=== PATIENT | female | born 1995 | race Caucasian/White ===

== ENCOUNTER 2018-02-22 16:13 | Emergency (ER) | payer OTHER, SELFPAY ==
[2018-02-22 16:15] VITALS: BP 134/74; PULSE 96; RESP 16; TEMP 36.6; O2SAT 96; BMI 26.2
--- NOTE | 2018-02-22 16:28 | US_ITS ---
STUDY: FIRST TRIMESTER OBSTETRICAL ULTRASOUND REASON FOR EXAM: Female, 22 years old. Bleeding. LMP: November 20, 2017 TECHNIQUE: Transvaginal. PRIOR ULTRASOUND: None. FINDINGS: There is visualization of a single gestational sac in a normal intrauterine position. The mean sac diameter (MSD) measures 2.1 cm, indicating an estimated gestational age (EGA) of 7 weeks, 1 days. The gestational sac shape is irregular. There is no demonstrated yolk sac. The placenta is non-visualized. There is no demonstrated embryo ( pole). The estimated gestation age (EGA) by LMP is 13 weeks, 3 days. The estimated date of delivery (REGGIE) by LMP is August 27, 2018. The estimated gestation age (EGA) by US is 7 weeks, 1 days. The estimated date of delivery (REGGIE) by US is October 10, 2018. The uterus measures 8.3 x 5.7 x 4.5 cm. There is no demonstrated uterine fibroid. The cervix is closed. The right ovary measures 2.9 x 1.8 x 1.6 cm. There is no right ovarian cyst. There is no visualized right adnexal mass or complex lesion. The left ovary measures 3.7 x 2.4 x 1.7 cm. There is 2.2 cm cyst. There is no visualized left adnexal mass or complex lesion. There is no fluid in the cul de sac. US/Transvaginal w/Preg US IMPRESSION: Intrauterine gestational sac at 7 weeks 1 day with irregular appearance. There is no pole nor cardiac activity. Electronically Signed: Vitaly Llanes MD at 17:46 EDT , Service support ,
--- NOTE | 2018-02-22 16:32 | ED.VISSUMM ---
- ER Visit Summary Date of Service: 02/22/18 Chief Complaint: Possible miscarriage History of Present Illness: The patient is a 22 F . Last menstrual period was about 2 months ago. Patient had an ultrasound about 10 days ago that showed a yolk sac and gestational sac, but she never showed a pole. Her quant has been going down and her OB is concerned for miscarriage. Today she started passing blood and clots. She is having cramping. Physical Examination: Vital signs are unremarkable. Afebrile. Nontoxic. Skin appears normal. Abdomen soft and nontender. Test Results: CBC, blood type, quant pending. Ultrasound pending. Blood counts normal. Blood type B+. Quant 6300. The patient thinks it was much higher on the last check. Ultrasound showed a gestational sac at 7 weeks and 1 day. No pole or cardiac activity. Pelvic exam showed old brown blood. Cervix closed. No masses or other tissue. No significant tenderness. Emergency Department Course and Treatment: Patient likely has an inevitable miscarriage. Workup as above. Patient will follow up with OB tomorrow. Return if unable to follow-up for any new or worsening symptoms develop. Treatment Plan: As above Disposition: Discharged Impression: 1. Inevitable This note was generated with [employer] dictation software. It may contain incorrect words, spelling, and punctuation that were not noted in review of the chart prior to signing ED Disposition - Plan for ED Patient: Chief Complaint: Vag Bld, Preg Referrals: [facility] Doctor,Out of [Primary Care Provider] -
[2018-02-22] MEDS: Acetaminophen 500 MG Tablet 1000 MG PO (16:50)
[2018-02-22 16:58] LABS: Absolute Lymphocyte Count 2.81 X10^3/ul (0.83-4.51); Absolute Neutrophil Count 5.9 X10^3/uL (2.0-7.7); Basophil# 0.02 X10^3/uL; Basophil% 0.2 % (0-1); Eosinophil# 0.59 X10^3/uL; Hematocrit 36.8 % (37-47); Hemoglobin 12.3 g/dl (12.0-15.0); Lymphocyte # 2.81 X10^3/ul (4.0); Lymphocyte % 28.4 % (19-41); Mean Corp Hgb Conc 33.4 g/gl (32-36); Mean Corpuscular Hgb 31.6 pg (27.0-32.0); Mean Corpuscular Volume 94.6 fL (81-99); Monocyte# 0.57 X10^3/uL; Monocyte% 5.8 % (0-10); Neutrophil # 5.88 X10^3/uL (2.7-7.7); Neutrophil % 59.5 % (47-70); Platelet Count 257 K/mm3 (150-450); RBC Distribution Width CV 13.5 % (11.6-14.6); RBC Distribution Width SD 46.6 fl (35.1-43.9); Red Blood Count 3.89 M/mm3 (4.2-5.4); White Blood Count 9.9 K/mm3 (4.4-11.0)
[2018-02-22 17:00] LABS: POSITIVE COUNT NO; POSITIVE DIFFERENTIAL NO; POSITIVE MORPHOLOGY NO
[2018-02-22 17:36] LABS: hCG Titer Quant., Serum 6310 mIU/mL (<9 non-preg)
--- NOTE | 2018-02-22 19:16 | ED.DEP ---
ED Disposition - Plan for ED Patient: Chief Complaint: Vag Bld, Preg Instructions: ED Miscarriage Incom Referrals: [facility] Doctor,Out of [Primary Care Provider] - Additional Instructions: Follow up with your OB tomorrow. Return if worse or if unable to follow up.
[2018-02-22 19:26] VITALS: BP 112/65; PULSE 100; PULSE 93; O2SAT 96; O2SAT 98
== END 2018-02-22 19:34 | disposition home or self-care (01) ==
PROVIDERS: Emergency Provider Emergency Medicine
DX: O20.0 Threatened abortion (principal); O99.331 Smoking (tobacco) complicating pregnancy, first trimester; F17.290 Nicotine dependence, other tobacco product, uncomplicated; Z3A.01 Less than 8 weeks gestation of pregnancy; Z79.899 Other long term (current) drug therapy
CPT/HCPCS: 76817; 84702; 85025; 86900; 86901; 99284; A4216

== ENCOUNTER 2018-02-26 05:12 | Emergency (ER) | payer OTHER, SELFPAY ==
[2018-02-26 05:13] VITALS: BP 120/76; PULSE 72; RESP 22; TEMP 36.4; O2SAT 99; BMI 27.8
--- NOTE | 2018-02-26 05:31 | ED.VISSUMM ---
- ER Visit Summary Date of Service: 02/26/18 Chief Complaint: Miscarriage History of Present Illness: The patient is a 22 F 7 week and 5 day by ultrasound presents with increasing pelvic pain and vaginal bleeding with clots since midnight. Was seen 4 days ago in the ED with ultrasound 7 weeks and 1 day, there is no heart tones, concerns for an inevitable miscarriage. Her LOAN ORIGINATOR is in [place]. She did call the office the following day, was able to get in. She was in the process having her records transferred to OB in the region, she cannot recall the name at this time. She states over the last 3 days only mild spotting and improving however at midnight pain increase along with bleeding with clots. Denies any trauma. Last meal was at 6 PM, drink clear fluids at 2 AM. Records reviewed, noted ultrasounds. HCG was 6310. Physical Examination: General: Alert and oriented ?3, uncomfortable, tearful HEENT: Normocephalic, atraumatic. Moist mucosa membranes Neck: supple, nontender. Cardiovascular: Regular rate and rhythm, no murmurs Respiratory: Normal breath sounds, symmetric, no distress Abdomen: Soft, suprapubic tenderness without guarding or rebound : Normal external exam. Speculum examination noted blood pooling in the vault with small clots. Blood was removed with cotton swabs. There is noted tissue at the cervical os. Extremities: Nontender, no edema, pulses intact ?4 Neuro: no focal neurological deficits. Test Results: HCG 2500. Hemoglobin 12.1. Rh+. Emergency Department Course and Treatment: Due to patient discomfort, IVs placed. Given dose of morphine and Zofran. IV fluids started. Hemoglobin obtained stable. Quant is trending down from 4 days ago. Rh+. Reevaluation she is much more comfortable. Discussed currently active miscarriage. Parents in the room. Patient states she would like to naturally miscarriage at home. Short prescription for Percocet to use. She will use Motrin also. States there is an OB doctor name at home in the area however she is also given follow-up with current on-call OB. Discussed monitoring bleeding increasing with more than 2 pads every hour for hours or pain out of control to return for reevaluation. Patient understands and agrees with plan. Treatment Plan: [] Disposition: Discharge Impression: Active miscarriage This note was generated with Dragon dictation software. It may contain incorrect words, spelling, and punctuation that were not noted in review of the chart prior to signing ED Disposition - Plan for ED Patient: Disposition: Home or Assisted Living Chief Complaint: Vag Bld, Preg Diagnosis: Incomplete miscarriage Instructions: ED Miscarriage Incom Prescriptions: Oxycodone HCl/Acetaminophen [Percocet 5/325] 1 tablet PO Q6H PRN PRN 3 Days #12 tablet PRN Reason: Pain Referrals: [facility] Doctor,Out of [Primary Care Provider] - Babak Ibrahim [STAFF PHYSICIAN] - 3-5 Days
[2018-02-26] MEDS: Morphine 4 MG/ML Syringe IV (05:38)
[2018-02-26] MEDS: 0.9% Normal Saline 1,000 ML 150 ML IV (05:38)
[2018-02-26] MEDS: Ondansetron 4 MG/2 ML Vial IV (05:38)
[2018-02-26 05:49] LABS: Absolute Lymphocyte Count 1.93 X10^3/ul (0.83-4.51); Absolute Neutrophil Count 8.3 X10^3/uL (2.0-7.7); Basophil# 0.02 X10^3/uL; Basophil% 0.2 % (0-1); Eosinophil# 0.29 X10^3/uL; Eosinophils% 2.6 % (0-5); Hematocrit 36.4 % (37-47); Hemoglobin 12.1 g/dl (12.0-15.0); Lymphocyte # 1.93 X10^3/ul (4.0); Lymphocyte % 17.3 % (19-41); Mean Corp Hgb Conc 33.2 g/gl (32-36); Mean Corpuscular Hgb 31.5 pg (27.0-32.0); Mean Corpuscular Volume 94.8 fL (81-99); Mean Platelet Vol. 10.2 fl (6.2-12.0); Monocyte# 0.64 X10^3/uL; Monocyte% 5.7 % (0-10); Neutrophil # 8.27 X10^3/uL (2.7-7.7); Platelet Count 248 K/mm3 (150-450); RBC Distribution Width CV 13.2 % (11.6-14.6); RBC Distribution Width SD 44.4 fl (35.1-43.9); Red Blood Count 3.84 M/mm3 (4.2-5.4); White Blood Count 11.2 K/mm3 (4.4-11.0)
[2018-02-26 06:03] LABS: POSITIVE COUNT NO; POSITIVE DIFFERENTIAL NO; POSITIVE MORPHOLOGY NO
[2018-02-26 06:28] LABS: hCG Titer Quant., Serum 2574 mIU/mL (<9 non-preg)
[2018-02-26 07:23] VITALS: PULSE 63; RESP 18; O2SAT 98
== END 2018-02-26 07:24 | disposition home or self-care (01) ==
PROVIDERS: Emergency Provider Emergency Medicine
DX: O03.4 Incomplete spontaneous abortion without complication (principal); Z79.899 Other long term (current) drug therapy
CPT/HCPCS: 84702; 85025; 86850; 86900; 96361; 96374; 96375; 99285; J7030; J2405

== ENCOUNTER 2018-09-07 12:19 | Emergency (ER) | payer OTHER, SELFPAY ==
[2018-09-07 12:20] VITALS: BP 129/73; PULSE 111; RESP 18; TEMP 36.6; O2SAT 98; BMI 27.3
--- NOTE | 2018-09-07 12:54 | RAD_ITS ---
STUDY: X-RAY - RIGHT HAND REASON FOR EXAM: Female, 23 years old. Increasing pain at the second metacarpal region. History of arthrogryposis TECHNIQUE: 3 view(s) of the hand. COMPARISON: None. FINDINGS: Normal radiocarpal articulation. Normal distal radioulnar joint. Normal visualized carpal bones. Normal carpal articulations Normal carpometacarpal articulation of the thumb. Normal second through fifth carpometacarpal joints. Normal metacarpi. There is arthrodesis of the first metacarpophalangeal joint. Normal interphalangeal joint of the thumb. Normal proximal and distal phalanges of the thumb. Fusion at the second metacarpophalangeal joint. Flexion deformity at the third fourth and fifth metacarpophalangeal joints. Normal proximal and distal interphalangeal joints of the second through fifth fingers. Normal phalanges of the second through fifth fingers. The soft tissue structures are unremarkable. RAD/Hand Min 3 Views IMPRESSION: Fusion at the first and second metacarpophalangeal joints. Flexion deformities of the third fourth and fifth metacarpophalangeal joints. Electronically Signed: Jaguar Galdamez MD at 13:21 EDT Tel [phone], Service support ,
--- NOTE | 2018-09-07 14:08 | ED.VISSUMM ---
- ER Visit Summary Date of Service: 09/07/18 Chief Complaint: Right hand pain History of Present Illness: The patient is a 23 F presenting for evaluation secondary to right hand pain. Patient has a history of Arthrogryposis. She has had multiple surgeries to her right hand including fusions. Last one was done a couple years ago down in [place]. Patient reports over the course last 2 weeks she has had gradually increasing pain and swelling associated with her underlying medical condition. She denies any injuries or fever. Patient states that anti-inflammatories did somewhat help with this, as well as bracing. Physical Examination: Upper extremity exam shows contractures of the fingers bilaterally. Right hand exam shows multiple scars over the metacarpals. Limited range of motion of the fingers. No warmth or erythema noted. No evidence of lymphangitic streaking. Limited range of motion at baseline. 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 Reviewed patient's prescription reporting record, she has not had any sort of pain medications recently. Patient will be sent home with a course of [place]. I gave her multiple referrals for hand surgeons in the area with which she can follow-up. She was appreciated this and the patient was discharged. Disposition: Discharge Impression: 1. Right-sided arthrogryposis This note was generated with [employer] dictation software. It may contain incorrect words, spelling, and punctuation that were not noted in review of the chart prior to signing ED Disposition - Plan for ED Patient: Disposition: Home or Assisted Living Chief Complaint: Upper Extremity Injury Diagnosis: Arthrogryposis Instructions: ED Joint Pain Prescriptions: Hydrocodone Bitart/Apap 5-325 [[place] 5MG-325MG] 1 tab PO Q6H PRN PRN 3 Days #12 tab PRN Reason: Pain Referrals: Lamont Navarrete III, MD [STAFF PHYSICIAN] - (For primary care) Soco Rachel DO [STAFF PHYSICIAN] - (Rob hand) Additional Instructions: Dr. Chente Ragsdale [facility] [address] [facility] [address], [place] [address] Dr. Miguel A Jalloh [facility] [address], [place] [address]
--- NOTE | 2018-09-07 14:12 | ED.DCSUM_ITS ---
- ER Visit Summary Date of Service: 09/07/18 Chief Complaint: Right hand pain History of Present Illness: The patient is a 23 F presenting for evaluation secondary to right hand pain. Patient has a history of Arthrogryposis. She has had multiple surgeries to her right hand including fusions. Last one was done a couple years ago down in [place]. Patient reports over the course last 2 weeks she has had gradually increasing pain and swelling associated with her underlying medical condition. She denies any injuries or fever. Patient states that anti-inflammatories did somewhat help with this, as well as bracing. Physical Examination: Upper extremity exam shows contractures of the fingers bilaterally. Right hand exam shows multiple scars over the metacarpals. Limited range of motion of the fingers. No warmth or erythema noted. No evidence of lymphangitic streaking. Limited range of motion at baseline. 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 Reviewed patient's prescription reporting record, she has not had any sort of pain medications recently. Patient will be sent home with a course of [place]. I gave her multiple referrals for hand surgeons in the area with which she can follow-up. She was appreciated this and the patient was discharged. Disposition: Discharge Impression: 1. Right-sided arthrogryposis This note was generated with [email or web address] dictation software. It may contain incorrect words, spelling, and punctuation that were not noted in review of the chart prior to signing ED Disposition - Plan for ED Patient: Disposition: Home or Assisted Living Chief Complaint: Upper Extremity Injury Diagnosis: Arthrogryposis Instructions: ED Joint Pain Prescriptions: Hydrocodone Bitart/Apap 5-325 [[place] 5MG-325MG] 1 tab PO Q6H PRN PRN 3 Days #12 tab PRN Reason: Pain Referrals: Lamont Navarrete III, MD [STAFF PHYSICIAN] - (For primary care) Soco Rachel DO [STAFF PHYSICIAN] - (Rob hand) Additional Instructions: Dr. Chente Ragsdale [facility] [address], [address] [facility] [address], [place] [address] Dr. Miguel A Jalloh [facility] [address], [place] [address]
[2018-09-07 14:23] VITALS: PULSE 89; RESP 14; O2SAT 98
== END 2018-09-07 14:24 | disposition home or self-care (01) ==
PROVIDERS: Emergency Provider Emergency Medicine
DX: Q68.8 Other specified congenital musculoskeletal deformities (principal); G89.29 Other chronic pain; Z79.899 Other long term (current) drug therapy
CPT/HCPCS: 73130; 99282

== ENCOUNTER 2019-05-13 10:12 | Emergency (ER) | payer BC, SELFPAY ==
[2019-04-15 12:25] VITALS: BMI 27.3
[2019-05-13 10:13] VITALS: BP 155/94; PULSE 105; RESP 18; TEMP 36.6; O2SAT 100; BMI 27.6
--- NOTE | 2019-05-13 10:34 | ED.DCSUM_ITS ---
- ER Visit Summary Date of Service: 05/13/19 Chief Complaint: Left hand pain History of Present Illness: The patient is a 23 F who presents with left hand pain that has been getting worse over the past week. Patient has a history of arthrogryposis and states it is flaring up. Patient states her pain is worse with any movement. Patient states she has been taking ibuprofen with no relief. Patient states she normally wears splints at night which help with the pain but this has not been helping over the past few days. Patient describes the pain as sharp and aching. Patient states the pain is over the left index finger on the dorsal aspect. Patient states she is scheduling an appointment with her orthopedic surgeon for further evaluation. Physical Examination: Vital signs are stable. Patient is afebrile. Patient is in no acute distress. Musculoskeletal exam reveals tenderness over the dorsal aspect of the left index finger and second metacarpal. There is no edema or ecchymosis. There is no bony crepitance or step-off. Range of motion was limited in all motions of the left index finger secondary to pain. Sensation was intact to light touch in all digits. Capillary refill was less than 2 seconds in all digits. Radial pulses are equal bilaterally. Emergency Department Course and Treatment: Patient was given prescriptions for prednisone and a short course of [place]. Patient was instructed to follow-up with her primary care physician and orthopedic surgeon as scheduled. Patient understood and was agreeable with the plan. All questions were answered. Disposition: Discharge home Impression: Arthritis flareup left hand This note was generated with [employer] dictation software. It may contain incorrect words, spelling, and punctuation that were not noted in review of the chart prior to signing ED Disposition - Plan for ED Patient: Disposition: Home or Assisted Living Diagnosis: Arthritis pain, hand Instructions: METHYLPREDNISOLONE, Oral, Rheumatoid Arthritis Prescriptions: Prednisone [Deltasone] 60 mg PO DAILY #15 tab Prescription Printed Hydrocodone Bitart/Apap 5-325 [[place] 5MG-325MG] 1 tab PO Q6H PRN PRN 3 Days #10 tab PRN Reason: Pain Prescription Printed Referrals: Terrie Almendarez MD [STAFF PHYSICIAN] - 3-5 Days
--- NOTE | 2019-05-13 10:47 | ED.RN ---
DISCHARGE INSTRUCTIONS GIVEN TO AND REVIEWED WITH PATIENT, PATIENT DENIES QUESTIONS OR CONCERNS AND VOICES UNDERSTANDING OF DISCHARGE INSTRUCTIONS. PT AMBULATES OUT OF ROOM WITHOUT DIFFICULTY.
== END 2019-05-13 10:47 | disposition home or self-care (01) ==
PROVIDERS: Emergency Provider Emergency Medicine
DX: M19.042 Primary osteoarthritis, left hand (principal); Q68.8 Other specified congenital musculoskeletal deformities; F17.290 Nicotine dependence, other tobacco product, uncomplicated
CPT/HCPCS: 99282

== ENCOUNTER 2019-07-10 12:33 | Emergency (ER) | payer BC, SELFPAY ==
[2019-05-16 17:43] VITALS: BMI 27.6
[2019-07-10 12:34] VITALS: BP 114/64; PULSE 81; RESP 16; TEMP 36.9; O2SAT 96; BMI 27.5
--- NOTE | 2019-07-10 12:49 | RAD_ITS ---
STUDY: X-RAY - RIGHT HAND REASON FOR EXAM: Female, 24 years old. Drop chest who hitting right index finger and thumb, pain TECHNIQUE: 3 view(s) of the hand. COMPARISON: 09/07/2018 FINDINGS: Normal radiocarpal articulation. Normal distal radioulnar joint. Normal visualized carpal bones. Normal carpal articulations Normal carpometacarpal articulation of the thumb. Normal second through fifth carpometacarpal joints. Normal metacarpi. There is ankylosis of the first MCP joint with surgical cerclage wire noted. Normal interphalangeal joint of the thumb. Normal proximal and distal phalanges of the thumb. There is bony ankylosis of the second MCP joint with flexion contractures involving the third through fifth MCP joints. Normal proximal and distal interphalangeal joints of the second through fifth fingers. Normal phalanges of the second through fifth fingers. The soft tissue structures are unremarkable. RAD/Hand Min 3 Views IMPRESSION: 1. No fracture or malalignment. 2. Stable chronic changes, as above. Electronically Signed: Steven Dacosta MD ([place]) at 13:10 EDT , Service support ,
[2019-07-10] MEDS: Ibuprofen 600 MG Tablet PO (12:55)
--- NOTE | 2019-07-10 13:43 | ED.VIS.UPPEX ---
History of Present Illness Informant: Patient Occurred: Today Mechanism/Context: Injury Onset: Today Context: Sudden Onset Timing: Continuous Quality of Pain: Aching Location: right hand Current Severity: Severe Maximum Severity: Severe Worsened by: movement, palpation Relieved by: nothing Associated Symptoms: Negative for: Parasthesia, Weakness, Loss of Funtion Narrative: 24-year-old female history of arthrogryposis capital right hand surgeries for contractures presents to the emergency department with right hand injury. She dropped a box on her hand earlier today. Sudden onset of pain and swelling. No numbness or tingling. She has not taken anything yet for pain. She denies any other injuries at this time. Tetanus Immunization: Unknown Prior similar symptoms: Yes Recent Illness/Hospitalization: No <Krishna Lee - Last Filed: 07/10/19 13:43> <Vitaly Leggett - Last Filed: 07/10/19 14:03> Chief Complaint: Upper Extremity Injury Past Medical History Past Medical History: - - Arthrogryposis Surgical History: - - multiple right hand surgeries Lives: With Family Smoking Status: Never smoker <Krishna Lee - Last Filed: 07/10/19 13:43> <Vitaly Leggett - Last Filed: 07/10/19 14:03> - Allergies and Home Meds Allergies/Adverse Reactions: Allergies No Known Allergies Allergy (Verified 07/10/19 12:34) Primary Care Physician: Patrice Collado MD [STAFF PHYSICIAN] - Care Physician,No Primary [Primary Care Provider] - Review of Systems All systems negative except as indicated Musculoskeletal: Reports: Swelling, Extremity Pain <Krishna Lee - Last Filed: 07/10/19 13:43> Physical Exam Vital Signs/Narrative: Vital Signs Temp Pulse Resp BP Pulse Ox 07/10/19 12:34 98.4 F 81 16 114/64 96 Inital Vital Signs reviewed: Yes Left Finger: Edema - 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 Multiple well-healed old surgical incisions over the first and second fingers as well. She has swelling over her right second finger diffusely. She normally has difficulty with extension but not flexion tomorrow at the PIP and DIP joints but has more difficulty with flexion today after the injury. Cap refill and sensation are normal. She has no other bony tenderness of the right hand other than her second finger. <Krishna Lee - Last Filed: 07/10/19 13:43> Vital Signs/Narrative: Vital Signs Temp Pulse Resp BP Pulse Ox 07/10/19 13:59 15 07/10/19 12:34 98.4 F 81 16 114/64 96 <Vitaly Leggett - Last Filed: 07/10/19 14:03> Diagnostic/Tx/Re-eval - Medical Decision Making Patient was given ibuprofen for pain. X-ray showed no acute findings. Discussed with patient rest ice and elevation. She was given 1 oxycodone here for pain but no prescription. She was referred locally to Dr. Collado for follow-up as she had previously been following up at [facility] but recently moved to the area. <Krishna Lee - Last Filed: 07/10/19 13:43> - Medical Decision Making Seen and evaluated independently and in conjunction with physician special ed assistant. Agree with notes above unless documented otherwise. Patient has chronic contractures, she also has chronic pain given her deformities and multiple hand surgeries. She is having difficulty doing baseline movements of her right fingers since this injury, however all tendon function appears to be at baseline. I suspect this is all due to swelling and contusion given her x-rays are negative. She was given 1 oxycodone here and was okay with that and no prescription for more. She was given a local specialist contact that may be able to help her with her issues. <Vitaly Leggett - Last Filed: 07/10/19 14:03> ED Disposition <Krishna Lee - Last Filed: 07/10/19 13:43> <Vitaly Leggett - Last Filed: 07/10/19 14:03> - Plan for ED Patient: Disposition: Home or Assisted Living Diagnosis: Contusion of hand including fingers, Arthrogryposis Instructions: CONTUSION, Hand Referrals: Care Physician,No Primary [Primary Care Provider] - Patrice Collado MD [STAFF PHYSICIAN] -
[2019-07-10 13:59] VITALS: RESP 15
[2019-07-10] MEDS: oxyCODONE 5 MG Tablet PO (14:00)
== END 2019-07-10 14:01 | disposition home or self-care (01) ==
PROVIDERS: Emergency Provider Physician Assistant Medical
DX: S60.221A Contusion of right hand, initial encounter (principal); S60.00XA Contusion of unspecified finger without damage to nail, initial encounter; Q68.8 Other specified congenital musculoskeletal deformities; W20.8XXA Other cause of strike by thrown, projected or falling object, initial encounter; Y93.89 Activity, other specified; Y92.89 Other specified places as the place of occurrence of the external cause; Y99.8 Other external cause status
CPT/HCPCS: 73130; 99283

== ENCOUNTER 2020-01-23 09:23 | Emergency (ER) | payer OTHER, SELFPAY ==
[2020-01-05 08:19] VITALS: BMI 26.5
[2020-01-23 09:24] VITALS: BP 109/70; PULSE 84; RESP 17; TEMP 36.8; O2SAT 99; BMI 25.2
--- NOTE | 2020-01-23 09:38 | ED.DCSUM_ITS ---
History of Present Illness Chief Complaint: Nausea/Vomiting Informant: Patient Onset: Days - Worsened x 4-5 days Current Severity: Moderate Maximum Severity: Moderate Narrative: Patient presents with increased nausea and vomiting. She is approximately 8 weeks . She states she is had what she considers normal morning sickness for the past 2 weeks with 1 or 2 episodes of vomiting. Over the past 4 to 5 days she is had increased vomiting and difficulty keeping anything down. She states she is still urinating normally. She denies dysuria. She has some light lower abdominal cramping. No spotting or bleeding. She is scheduled to see her FOLDING MACHINE FEEDER in 2 days for this . She is G2, P0, Ab1. - Past Medical History (1) Chronic hand pain Status: Chronic (2) Generalized anxiety disorder with panic attacks Status: Chronic Past Medical History - Allergies and Home Meds Allergies/Adverse Reactions: Allergies No Known Allergies Allergy (Verified 01/23/20 09:24) Primary Care Physician: Care Physician,No Primary [Primary Care Provider] - Doctors: Dr. Kramer Prior records reviewed: Yes Surgical History: - Lives: With Family Smoking Status: Never smoker Review of Systems General: Denies: Chills, Fever Eyes: Denies: Visual changes - bilaterally ENT: Denies: Bilateral ear pain Cardiovascular: Denies: Chest pain Respiratory: Denies: Dyspnea, Cough Gastrointestinal: Reports: Abdominal pain - Mild pelvic cramping, Nausea, Vomiting. Denies: Diarrhea Genitourinary: Reports: Frequency. Denies: Dysuria Musculoskeletal: Denies: Swelling, Extremity Pain Skin: Denies: Rash Neurological: Denies: Headache Hematologic: Denies: Easy bruising, Easy bleeding Allergy: Denies: Uticaria Physical Exam Vital Signs/Narrative: Vital Signs Temp Pulse Resp BP Pulse Ox 01/23/20 09:24 98.3 F 84 17 109/70 99 Inital Vital Signs reviewed: Yes General: Well nourished, Well developed Head: Normocephalic ENT: Dry mucous membranes Neck: Supple Cardiovascular: Regular rate, Regular rhythm Respiratory: No distress, CTA bilaterally Abdomen: Soft, Nontender, Hypoactive bowel sounds Skin: Normal color Neurological: Alert, Oriented x3 Psychological: Normal affect Diagnostic/Tx/Re-eval Laboratory Results 01/23/20 01/23/20 01/23/20 09:40 09:40 09:40 WBC 10.9 RBC 4.25 Hgb 13.3 Hct 39.4 MCV 92.7 MCH 31.3 MCHC 33.8 RDW Std Deviation 43.6 RDW Coeff of Amanda 12.8 Plt Count 265 MPV 10.3 Immature Gran % (Auto) 0.300 Neut % (Auto) 74.0 H Lymph % (Auto) 19.2 Irion % (Auto) 5.3 Eos % (Auto) 0.9 Baso % (Auto) 0.3 Absolute Neuts (auto) 8.0 H Absolute Lymphs (auto) 2.09 Nucleated RBC % 0 Sodium 137 Potassium 3.5 Chloride 107 Carbon Dioxide 23.0 Anion Gap 7 BUN 8 Creatinine 0.57 Estim Creat Clear Calc 114.84 Est GFR (MDRD) Af Amer 167 Est GFR (MDRD) Non-Af 138 BUN/Creatinine Ratio 14.1 Glucose 82 Calcium 8.7 HCG, Quant 08611 H Urine Color Urine Clarity Urine pH Ur Specific [place] Urine Protein Urine Glucose (UA) Urine Ketones Urine Occult Blood Urine Nitrite Urine Bilirubin Urine Urobilinogen Ur Leukocyte Esterase Urine RBC Urine WBC Ur Squamous Epith Cells Urine Bacteria Urine Mucus 01/23/20 10:50 WBC RBC Hgb Hct MCV MCH MCHC RDW Std Deviation RDW Coeff of Amanda Plt Count MPV Immature Gran % (Auto) Neut % (Auto) Lymph % (Auto) Irion % (Auto) Eos % (Auto) Baso % (Auto) Absolute Neuts (auto) Absolute Lymphs (auto) Nucleated RBC % Sodium Potassium Chloride Carbon Dioxide Anion Gap BUN Creatinine Estim Creat Clear Calc Est GFR (MDRD) Af Amer Est GFR (MDRD) Non-Af BUN/Creatinine Ratio Glucose Calcium HCG, Quant Urine Color Yellow Urine Clarity Sl. Cloudy Urine pH 6.0 Ur Specific [place] 1.015 Urine Protein Negative Urine Glucose (UA) Normal Urine Ketones 50 H Urine Occult Blood Negative Urine Nitrite Negative Urine Bilirubin Negative Urine Urobilinogen Normal Ur Leukocyte Esterase 25 H Urine RBC 0 SEEN Urine WBC 0-5 SEEN Ur Squamous Epith Cells 0-5 SEEN Urine Bacteria 2+ Urine Mucus 1+ - Medical Decision Making Patient was given Zofran and IV fluids. On repeat evaluation she does feel improved and is able to tolerate p.o. Urine does show bacteria, but 0-5 white cells and no nitrites. Urine will be sent for culture. Patient has a follow-up with her F[employer]ING MACHINE FEEDER in 2 days. She will be given a prescription for Zofran. ED Disposition - Plan for ED Patient: Disposition: Home or Assisted Living Diagnosis: Vomiting Instructions: VOMITING (6y-Adult) Prescriptions: Ondansetron [Zofran Odt] 4 mg PO Q8H PRN PRN #20 tab PRN Reason: Nausea Transmission Status: Pending to [id number] Referrals: Lakesha Kramer MD [STAFF PHYSICIAN] - Keep Yifan appointment
[2020-01-23 09:50] LABS: Absolute Lymphocyte Count 2.09 X10^3/uL (0.83-4.51); Basophil# 0.03 X10^3/uL; Basophil% 0.3 % (0-1); Eosinophils% 0.9 % (0-5); Hematocrit 39.4 % (37-47); Hemoglobin 13.3 g/dL (12.0-15.0); Lymphocyte # 2.09 X10^3/ul (4.0); Lymphocyte % 19.2 % (19-41); Mean Corp Hgb Conc 33.8 g/dL (32-36); Mean Corpuscular Hgb 31.3 pg (27.0-32.0); Mean Corpuscular Volume 92.7 fL (81-99); Mean Platelet Vol. 10.3 fl (6.2-12.0); Monocyte# 0.58 X10^3/uL; Monocyte% 5.3 % (0-10); NRBC Flagged by Analyzer 0 % (0-5); Neutrophil # 8.03 X10^3/uL (2.7-7.7); Platelet Count 265 K/mm3 (150-450); RBC Distribution Width CV 12.8 % (11.6-14.6); RBC Distribution Width SD 43.6 fl (35.1-43.9); Red Blood Count 4.25 M/mm3 (4.2-5.4); White Blood Count 10.9 K/mm3 (4.4-11.0)
[2020-01-23 10:04] LABS: Anion Gap 7 (5-15); BUN 8 mg/dL (7-18); BUN/Creat Ratio 14.1 RATIO (10-20); Calcium,Total 8.7 mg/dL (8.5-10.1); Chloride 107 mmol/L (98-107); Creatinine, Serum 0.57 mg/dL (0.55-1.02); EST Glomerular Filtration Rate 138 mL/min (>60); Est Glom Filt Rate - Afr Amer 167 mL/min (>60); Estimated Creatinine Clearance 114.84 ml/min; Glucose 82 mg/dL (74-106); Potassium 3.5 mmol/L (3.5-5.1); Sodium Level 137 mmol/L (136-145)
[2020-01-23] MEDS: Ondansetron 4 MG/2 ML Vial IV (10:16)
[2020-01-23] MEDS: 0.9% Normal Saline 1,000 ML 1000 ML IV (10:16)
[2020-01-23 10:31] LABS: hCG Titer Quant., Serum 38224 mIU/mL (1-3)
[2020-01-23 10:55] LABS: Red Blood Cells-Urine 0 SEEN /hpf (0-5)
[2020-01-23 10:58] LABS: Color, Urine Yellow (Yellow); Glucose, Dipstick Normal (Normal); Ketone-Dipstick 50 mg/dl (Negative); Leukocyte Esterase-Dipstick 25 /ul (Negative); Nitrite-Dipstick Negative (Negative); Occult Blood-Urine Negative /ul (Negative); Protein-Dipstick Negative (Negative); Specific Gravity, Urine 1.015 (1.002-1.030); Urine Bilirubin Dipstick Negative (Negative); Urine Clarity Sl. Cloudy (Clear); Urine Urobilinogen Normal (Normal)
[2020-01-23 11:07] LABS: Bacteria 2+ /hpf (None Seen); Mucous, Urine 1+ /hpf (<or=2+); Squamous Epithelial Cells - UA 0-5 SEEN /hpf (5-10); White Blood Cells 0-5 SEEN /hpf (0-5)
== END 2020-01-23 11:35 | disposition home or self-care (01) ==
PROVIDERS: Emergency Provider Emergency Medicine
DX: O21.9 Vomiting of pregnancy, unspecified (principal); Z3A.08 8 weeks gestation of pregnancy
CPT/HCPCS: 80048; 81001; 84702; 85025; 87086; 87088; 96361; 96374; 99283; J7030; A4216; J2405

== ENCOUNTER → 2020-01-25 | Outpatient (CLI) | payer OTHER, SELFPAY ==
[2020-01-25 11:19] VITALS: BMI 25.2
[2020-01-25 17:53] LABS: Amphetamine Urine VISTA NEGATIVE (<1000 ng/mL); Barbiturate Urine VISTA NEGATIVE (< 200 ng/mL); Benzodiazepine Urine VISTA NEGATIVE (< 200 ng/mL); Cocaine Urine VISTA NEGATIVE (< 300 ng/mL); Ecstacy Urine VISTA NEGATIVE (< 500 ng/mL); Methadone Urine VISTA NEGATIVE (< 300 ng/mL); PCP Urine VISTA NEGATIVE (< 25 ng/mL); THC Urine VISTA POSITIVE (< 50 ng/mL); Vista UDS pH Range 7
[2020-01-25 19:19] LABS: Chlamydia Trachomatis by PCR Negative (Negative); Neisserai gonorrhoeae by PCR Negative (Negative); Probe Check PASS; Sample Adequacy Control PASS; Specimen Processing Control PASS
== END | disposition home or self-care (01) ==
LOC: LABSPEC 16:48
PROVIDERS: Referring Provider Obstetrics & Gynecology; Visit Provider Obstetrics & Gynecology
DX: Z34.00 Encounter for supervision of normal first pregnancy, unspecified trimester (principal)
CPT/HCPCS: 80307; 87086; 87088; 87491; 87591

== ENCOUNTER → 2020-02-22 | Outpatient (CLI) | payer OTHER, SELFPAY ==
[2020-02-22 11:02] VITALS: BMI 25.2
[2020-02-22 11:40] LABS: Absolute Lymphocyte Count 2.02 X10^3/uL (0.83-4.51); Absolute Neutrophil Count 8.1 X10^3/uL (2.0-7.7); Basophil# 0.02 X10^3/uL; Basophil% 0.2 % (0-1); Eosinophil# 0.12 X10^3/uL; Eosinophils% 1.1 % (0-5); Hematocrit 34.2 % (37-47); Hemoglobin 11.6 g/dL (12.0-15.0); Lymphocyte # 2.02 X10^3/ul (4.0); Lymphocyte % 18.6 % (19-41); Mean Corp Hgb Conc 33.9 g/dL (32-36); Mean Corpuscular Hgb 31.1 pg (27.0-32.0); Mean Corpuscular Volume 91.7 fL (81-99); Mean Platelet Vol. 9.9 fl (6.2-12.0); Monocyte# 0.56 X10^3/uL; Monocyte% 5.2 % (0-10); NRBC Flagged by Analyzer 0 % (0-5); Neutrophil # 8.09 X10^3/uL (2.7-7.7); Neutrophil % 74.5 % (47-70); Platelet Count 237 K/mm3 (150-450); RBC Distribution Width CV 12.9 % (11.6-14.6); RBC Distribution Width SD 42.5 fl (35.1-43.9); Red Blood Count 3.73 M/mm3 (4.2-5.4); White Blood Count 10.9 K/mm3 (4.4-11.0)
[2020-02-22 13:00] LABS: HIV - WCH Non-Reactive (Nonreactive); Hepatitis B Surface Antigen Non-Reactive (Nonreactive); Hepatitis C Antibody Non-Reactive (Nonreactive); Rubella IgG 256.6 IU/mL
[2020-02-23 01:56] LABS: Rapid Plasmin Reagin (RPR) NONREACTIVE (NONREACTIVE)
== END | disposition home or self-care (01) ==
LOC: PAVLAB 11:26
PROVIDERS: Referring Provider Obstetrics & Gynecology; Visit Provider Obstetrics & Gynecology
DX: Z34.00 Encounter for supervision of normal first pregnancy, unspecified trimester (principal)
CPT/HCPCS: 36415; 85025; 86592; 86703; 86762; 86803; 86850; 86900; 86901; 87340

== ENCOUNTER → 2020-05-24 | Outpatient (CLI) | payer OTHER, SELFPAY ==
[2020-05-24 13:23] VITALS: BMI 25.2
[2020-05-24 17:26] LABS: Amphetamine Urine VISTA NEGATIVE (<1000 ng/mL); Barbiturate Urine VISTA NEGATIVE (< 200 ng/mL); Benzodiazepine Urine VISTA NEGATIVE (< 200 ng/mL); Cocaine Urine VISTA NEGATIVE (< 300 ng/mL); Ecstacy Urine VISTA NEGATIVE (< 500 ng/mL); Methadone Urine VISTA NEGATIVE (< 300 ng/mL); PCP Urine VISTA NEGATIVE (< 25 ng/mL); THC Urine VISTA POSITIVE (< 50 ng/mL); Vista UDS pH Range 6
== END | disposition home or self-care (01) ==
LOC: LABSPEC 14:55
PROVIDERS: Referring Provider Obstetrics & Gynecology; Visit Provider Obstetrics & Gynecology
DX: F12.90 Cannabis use, unspecified, uncomplicated (principal)
CPT/HCPCS: 80307

== ENCOUNTER → 2020-06-21 09:45 | Outpatient (CLI) | payer MEDICAID, SELFPAY ==
[2020-05-24 13:23] VITALS: BMI 25.2
[2020-06-21 10:05] LABS: Absolute Lymphocyte Count 1.79 X10^3/uL (0.83-4.51); Absolute Neutrophil Count 8.7 X10^3/uL (2.0-7.7); Basophil# 0.02 X10^3/uL; Basophil% 0.2 % (0-1); Eosinophil# 0.16 X10^3/uL; Eosinophils% 1.4 % (0-5); Hematocrit 35.9 % (37-47); Hemoglobin 11.8 g/dL (12.0-15.0); Lymphocyte # 1.79 X10^3/ul (4.0); Lymphocyte % 16.1 % (19-41); Mean Corp Hgb Conc 32.9 g/dL (32-36); Mean Corpuscular Hgb 31.1 pg (27.0-32.0); Mean Corpuscular Volume 94.7 fL (81-99); Mean Platelet Vol. 10.4 fl (6.2-12.0); Monocyte# 0.45 X10^3/uL; NRBC Flagged by Analyzer 0 % (0-5); Neutrophil # 8.67 X10^3/uL (2.7-7.7); Neutrophil % 77.9 % (47-70); Platelet Count 226 K/mm3 (150-450); RBC Distribution Width CV 12.2 % (11.6-14.6); RBC Distribution Width SD 42.1 fl (35.1-43.9); Red Blood Count 3.79 M/mm3 (4.2-5.4); White Blood Count 11.1 K/mm3 (4.4-11.0)
[2020-06-21 10:17] LABS: Glucose Challenge Gest 1H 50g 141 mg/dL (70-140)
[2020-06-21 15:09] LABS: Amphetamine Urine VISTA NEGATIVE (<1000 ng/mL); Barbiturate Urine VISTA NEGATIVE (< 200 ng/mL); Benzodiazepine Urine VISTA NEGATIVE (< 200 ng/mL); Cocaine Urine VISTA NEGATIVE (< 300 ng/mL); Ecstacy Urine VISTA NEGATIVE (< 500 ng/mL); Methadone Urine VISTA NEGATIVE (< 300 ng/mL); PCP Urine VISTA NEGATIVE (< 25 ng/mL); THC Urine VISTA POSITIVE (< 50 ng/mL); Vista UDS pH Range 5
== END ==
PROVIDERS: Nurse Practitioner Women's Health; Referring Provider Obstetrics & Gynecology; Visit Provider Obstetrics & Gynecology
DX: O99.321 Drug use complicating pregnancy, first trimester (principal); F12.90 Cannabis use, unspecified, uncomplicated; Z3A.00 Weeks of gestation of pregnancy not specified
CPT/HCPCS: 36415; 80307; 82950; 85025

== ENCOUNTER → 2020-07-02 | Outpatient (CLI) | payer MEDICAID, SELFPAY ==
[2020-06-21 10:23] VITALS: BMI 25.2
[2020-07-02 07:52] LABS: Glucose GTT-Gestation. Fasting 86 mg/dL (<105)
[2020-07-02 08:47] LABS: Glucose GTT-Gestational 1 Hr 167 mg/dL (<190)
[2020-07-02 09:48] LABS: Glucose GTT-Gestational 2 Hr 104 mg/dL (<165)
[2020-07-02 10:58] LABS: Glucose GTT-Gestational 3 Hr 112 L (<145)
== END | disposition home or self-care (01) ==
PROVIDERS: Referring Provider Obstetrics & Gynecology; Visit Provider Obstetrics & Gynecology
DX: O99.810 Abnormal glucose complicating pregnancy (principal); Z3A.00 Weeks of gestation of pregnancy not specified
CPT/HCPCS: 36415; 82951; 82952

== ENCOUNTER → 2020-08-03 | Outpatient (CLI) | payer MEDICAID, SELFPAY ==
[2020-08-03 09:22] VITALS: BMI 25.2
[2020-08-03 17:39] LABS: Amphetamine Urine VISTA NEGATIVE (<1000 ng/mL); Barbiturate Urine VISTA NEGATIVE (< 200 ng/mL); Benzodiazepine Urine VISTA NEGATIVE (< 200 ng/mL); Cocaine Urine VISTA NEGATIVE (< 300 ng/mL); Ecstacy Urine VISTA NEGATIVE (< 500 ng/mL); Methadone Urine VISTA NEGATIVE (< 300 ng/mL); PCP Urine VISTA NEGATIVE (< 25 ng/mL); THC Urine VISTA POSITIVE (< 50 ng/mL); Vista UDS pH Range 6
== END | disposition home or self-care (01) ==
LOC: LABSPEC 16:40
PROVIDERS: Referring Provider Obstetrics & Gynecology; Visit Provider Obstetrics & Gynecology
DX: Z34.00 Encounter for supervision of normal first pregnancy, unspecified trimester (principal)
CPT/HCPCS: 80307

== ENCOUNTER → 2020-08-17 | Outpatient (CLI) | payer MEDICAID, SELFPAY ==
[2020-08-17 10:19] VITALS: BMI 32.5
[2020-08-17 14:33] LABS: Amphetamine Urine VISTA NEGATIVE (<1000 ng/mL); Barbiturate Urine VISTA NEGATIVE (< 200 ng/mL); Benzodiazepine Urine VISTA NEGATIVE (< 200 ng/mL); Cocaine Urine VISTA NEGATIVE (< 300 ng/mL); Ecstacy Urine VISTA NEGATIVE (< 500 ng/mL); Methadone Urine VISTA NEGATIVE (< 300 ng/mL); PCP Urine VISTA NEGATIVE (< 25 ng/mL); THC Urine VISTA POSITIVE (< 50 ng/mL); Vista UDS pH Range 6
== END | disposition home or self-care (01) ==
LOC: LABSPEC 13:32
PROVIDERS: Referring Provider Obstetrics & Gynecology; Visit Provider Obstetrics & Gynecology
DX: F12.90 Cannabis use, unspecified, uncomplicated (principal)
CPT/HCPCS: 80307

== ENCOUNTER → 2020-08-24 | Outpatient (CLI) | payer MEDICAID, SELFPAY ==
[2020-08-24 09:39] VITALS: BMI 25.2
== END | disposition home or self-care (01) ==
LOC: LABSPEC 13:16
PROVIDERS: Referring Provider Family Medicine; Visit Provider Obstetrics & Gynecology
DX: Z34.00 Encounter for supervision of normal first pregnancy, unspecified trimester (principal)
CPT/HCPCS: 87081

== ENCOUNTER → 2020-08-30 | Outpatient (CLI) | payer MEDICAID, SELFPAY ==
[2020-08-30 10:15] VITALS: BMI 33.0
[2020-08-30 13:28] LABS: Amphetamine Urine VISTA NEGATIVE (<1000 ng/mL); Barbiturate Urine VISTA NEGATIVE (< 200 ng/mL); Benzodiazepine Urine VISTA NEGATIVE (< 200 ng/mL); Cocaine Urine VISTA NEGATIVE (< 300 ng/mL); Ecstacy Urine VISTA NEGATIVE (< 500 ng/mL); Methadone Urine VISTA NEGATIVE (< 300 ng/mL); PCP Urine VISTA NEGATIVE (< 25 ng/mL); THC Urine VISTA POSITIVE (< 50 ng/mL); Vista UDS pH Range 7
== END | disposition home or self-care (01) ==
LOC: LABSPEC 12:22
PROVIDERS: Visit Provider Obstetrics & Gynecology
CPT/HCPCS: 80307

== ENCOUNTER 2020-09-03 01:15 | Inpatient (IN) | payer MEDICAID, SELFPAY ==
[2020-08-30 10:15] VITALS: BMI 33.0
[2020-09-03] VITALS (42 sets, daily range): BP systolic 79–119; BP diastolic 42–68; PULSE 79–110; RESP 14; TEMP 36.4–38.2; O2SAT 96–99; BMI 33.0
[2020-09-03 00:30] LABS: Bacteria 0 SEEN /hpf (None Seen); Mucous, Urine 0 SEEN /hpf (<or=2+); White Blood Cells 0 SEEN /hpf (0-5)
[2020-09-03 00:32] LABS: Color, Urine Yellow (Yellow); Glucose, Dipstick Normal (Normal); Ketone-Dipstick 50 mg/dl (Negative); Leukocyte Esterase-Dipstick Negative /ul (Negative); Nitrite-Dipstick Negative (Negative); Occult Blood-Urine 10 /ul (Negative); Protein-Dipstick Negative (Negative); Urine Bilirubin Dipstick Negative (Negative); Urine Clarity Clear (Clear); Urine Urobilinogen Normal (Normal); Urine pH 6.5 (5.0 - 8.0)
[2020-09-03 00:39] LABS: Red Blood Cells-Urine 0-5 SEEN /hpf (0-5); Squamous Epithelial Cells - UA 0-5 SEEN /hpf (5-10)
[2020-09-03 00:43] LABS: Amphetamine Urine VISTA NEGATIVE (<1000 ng/mL); Barbiturate Urine VISTA NEGATIVE (< 200 ng/mL); Benzodiazepine Urine VISTA NEGATIVE (< 200 ng/mL); Cocaine Urine VISTA NEGATIVE (< 300 ng/mL); Ecstacy Urine VISTA NEGATIVE (< 500 ng/mL); Methadone Urine VISTA NEGATIVE (< 300 ng/mL); PCP Urine VISTA NEGATIVE (< 25 ng/mL); THC Urine VISTA POSITIVE (< 50 ng/mL); Vista UDS pH Range 6
[2020-09-03 00:52] LABS: ROM Internal Control Test YES-OK TO RESULT pt. (Internal QC); ROM Patient Test POSITIVE (Negative)
[2020-09-03] MEDS: Lactated Ringers 1,000 ML 200 ML IV ×3 (01:45→12:20)
[2020-09-03 01:59] LABS: Absolute Lymphocyte Count 1.78 X10^3/uL (0.83-4.51); Absolute Neutrophil Count 8.1 X10^3/uL (2.0-7.7); Basophil# 0.01 X10^3/uL; Basophil% 0.1 % (0-1); Eosinophil# 0.11 X10^3/uL; Hematocrit 36.3 % (37-47); Hemoglobin 11.8 g/dL (12.0-15.0); Lymphocyte # 1.78 X10^3/ul (4.0); Lymphocyte % 16.6 % (19-41); Mean Corp Hgb Conc 32.5 g/dL (32-36); Mean Corpuscular Hgb 29.7 pg (27.0-32.0); Mean Corpuscular Volume 91.4 fL (81-99); Mean Platelet Vol. 11.9 fl (6.2-12.0); Monocyte# 0.75 X10^3/uL; NRBC Flagged by Analyzer 0 % (0-5); Neutrophil # 8.05 X10^3/uL (2.7-7.7); Neutrophil % 74.8 % (47-70); Platelet Count 146 K/mm3 (150-450); RBC Distribution Width CV 14.6 % (11.6-14.6); RBC Distribution Width SD 48.5 fl (35.1-43.9); Red Blood Count 3.97 M/mm3 (4.2-5.4); White Blood Count 10.8 K/mm3 (4.4-11.0)
[2020-09-03] MEDS: Oxytocin 30 units/NS 500 ml 30 UNITS/500 ML IV.SOLN IV (03:50)
[2020-09-03] MEDS: fentaNYL 100 MCG/2 ML Ampul IV (05:36)
[2020-09-03] MEDS: 0.9% Saline Lock 10 ML Syringe IV (05:37)
[2020-09-03] MEDS: Lactated Ringers 500 ML 999 ML IV ×2 (05:37→06:55)
[2020-09-03] MEDS: fentaNYL-bupivacaine (epidural) 100 ML BAG EPIDURAL ×2 (06:53→11:21)
--- NOTE | 2020-09-03 07:14 | HP.PCM_ITS ---
- Problem List (1) SROM (spontaneous rupture of membranes) Status: Acute (2) Abnormal glucose affecting Status: Acute Comment: Normal 3 hr GTT (3) Arthrogryposis Status: Acute Comment: hands, multiple reconstructive surgeries. not inheritable per previous evaluation (4) Influenza vaccine administered Status: Acute Comment: 07/20/2020sc (5) Marijuana use Status: Acute Comment: Tox screen positive 01/24. Random tox screens, medical marijuana in the past. 8/6 positive; + tox 08/03/20; + 08/17 (6) Status: Acute Qualifiers: Comment: declined genetic, carrier and NTD. MFM Anatomy US normal (7) Supervision of normal first Status: Acute Qualifiers: Comment: PRR REGGIE 09/17/2020 Girl [place] Spouse: Dejan (8) Generalized anxiety disorder with panic attacks Status: Chronic Comment: counseling encouraged, no meds at this time History and Physical Date of Admission: 09/03/20 Intake Vital Signs 08/30/20 Height 5 ft 1 in 08/30/20 Weight: 175 lb 08/30/20 BMI 33.0 08/30/20 BP 108/76 Intake Visit Reasons: 38 WK OB Chief Complaint: est ob Diesel Engine Inspector Required: No Allergies No Known Allergies Allergy (Verified 08/30/20 10:16) Medications Ondansetron [Zofran Odt] 4 mg PO Q8H PRN PRN #20 tab 01/23/20 [Rx Confirmed 08/30/20] multivitamin no.47-iron fum 27 mg-folate no.1 1 mg-dha 300 mg capsule cap PO 01/25/20 [History Confirmed 08/30/20] famotidine 20 mg tablet 20 mg PO DAILY #30 tab 07/20/20 [Rx Confirmed 08/30/20] Last Menstral Period: 11/30/19 Zika: Zika virus screening: Negative : No PFSH PFSH Medical History Arthritis (Acute) Arthrogryposis (Acute) Seasonal allergies (Acute) Surgical History History of hand surgery (Acute) History of hand surgery (Acute) Family History Mother Anxiety Depression Social History (Updated 08/30/20 @ 10:[address] 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 pets and animals: Yes sexually active: Yes Smoking Status: Former smoker alcohol intake: current alcohol intake frequency: holidays/special occasions only Alcohol type: wine substance use type: does not use caffeine: No what type of physical activity do you participate in: none, walking frequency: daily seatbelt use: always do you feel safe at home: Yes additional social history: [facility] Pregancy History 2 Elective abortions Hx Para 0 Spontaneous abortions 1 Hx # Term Pregnancies Ectopic pregnancies Hx # Pregnancies Multiple births # of living children Past Pregnancies Del. Date Name GA/Weeks Outcome Route Bth Weight Gen Labor Lgth Anesthesia Del Locatn Provider FOB Unknown 2018: 6-7 weeks miscarriage HPI 38 WK OB: Details: CODY EUBANKS is a 25 year old @ 38 weeks presents with SROm clear fluid, irregular ctx. OB Visit REGGIE Calculator Estimated Delivery Date Method Current WG Current Estimate 09/17/20 Ultrasound #1 37w 3d Other Estimates 09/05/20 LMP (Uncertain) 39w 1d Expected Delivery Route/Plan Labor Preferences- took aug 13 CB class labor support person: Dejan pain management options preferred: epidural cut cord/dad catch: no : yes PP control planned: condoms discussed possible routes of delivery and associated risks: discussed possible delivery modalities and possible indications for each including R/B/A of , VAVD, and CS. questions answered. special requests: Specific Issue/Plans flu vaccine: given 07/20 tdap vaccine: given 06/21 rhogam: na LARC form signed: yes movement and labor precautions reviewed. Problem list reviewed and updated with the most current plan of care details and appropriate orders placed. Relevant counseling for the gestational age provided. Continue routine care and follow up unless otherwise noted in visit notes/problem list details Initial Weight: 134 lb Date EGA Weight BP Urine Prot Glucose FHR FuHt Pres Dilation Effaced St Visit Note 02/22/20 10w 2d 143 lb (+9 lb) 110/60 Negative Negative 170 SM- no vb lof cramping doing well plan NIPT but declines today 04/26/20 19w 3d 155 lb (+21 lb) 116/62 Negative Negative 150 20 Sm- no vb cramping anatomy us scheduled 05/24/20 23w 3d 157 lb 8 oz (+23 lb 8 oz) 110/58 Negative Negative 155 24 SM- small vb after a BM. no cramping, some fm no regular ctx. 06/21/20 27w 3d 162 lb 8 oz (+28 lb 8 oz) 110/64 Negative Negative 161 28 MH-No VB, LOF. Good FM. 28 wk labs and tdap. 07/09/20 30w 0d 163 lb (+29 lb) 110/64 Negative Negative 147 30 MH-nO VB, LOF. Good FM. Sleep issues with sleep/enc try benadryl. 07/20/20 31w 4d 166 lb 8 oz (+32 lb 8 oz) 122/58 Negative Negative 140 32 SM- no vb lof good fm no regular ctx flu vaccine given 08/03/20 33w 4d 169 lb 4 oz (+35 lb 4 oz) 120/70 Negative Negative 135 33 GP - no LOF, VB, DFM, ctx. Denies complaints. 08/17/20 35w 4d 172 lb (+38 lb) 104/70 Negative Negative 135 35 SM- no vb lof good fm no regular ctx discussed delivery preferences 08/24/20 36w 4d 173 lb 4 oz (+39 lb 4 oz) 114/60 Negative Negative 145 36 Cephalic 0.5 40 -3 GP - no LOF, VB, DFM, ctx . GBS collected today. 08/30/20 37w 3d 175 lb (+41 lb) 108/76 Negative Negative 145 37 Cephalic Sm- no vb lof good fm no regular ctx but having some ACOG First Trimester First Trimester: Desire for , Alcohol, Tobacco Cessation, Illicit/Recreational Drug/Substance Use, Intimate Partner Violence, Barriers to care, Unstable Housing, Communication Barriers, Environmental/Work Hazards, Anticipated Course of Care, Toxoplasmosis Precations, Use of Any medications, Sexual activity, Exercise, Dental Care, Sauna/Hot tub use, Seat Belt use, Childbirth classes/Hospital facilities, , Travel, Indications for US and Screening for Aneuploidy Second Trimester Second Trimester: Signs and Symptoms of Labor, Selecting a care provider, Reproductive Life Planning, Care Planning, Depression/Anxiety and Intimate Partner Violence; discussed Tobacco Cessation Diagnostics Diagnostics Diagnostics Gest Glucose Tolerance MG/DL 07/02/20 Glucose 1 Hr 50 gm 141 mg/dL (70-140) H 06/21/20 Hgb 11.8 g/dL (12.0-15.0) L 06/21/20 Hct 35.9 % (37-47) L 06/21/20 Details: HIV: Urine Culture: Sequential Screen: NIPT Screen: ROS Const Reports system reviewed and no additional complaints, except as documented Card Reports system reviewed and no additional complaints, except as documented Resp Reports system reviewed and no additional complaints, except as documented GI Reports system reviewed and no additional complaints, except as documented, Reports nausea Reports system reviewed and no additional complaints, except as documented Musc Reports system reviewed and no additional complaints, except as documented all other systems reviewed and negative Exam Const General: cooperative, healthy appearing, comfortable HENMT Head: normal to inspection Nose: external nose normal Face and sinus: normal facial exam Neck Neck: normal visual inspection, full ROM, no lymphadenopathy Thyroid: thyroid normal Chest Chest palpation & inspection: normal inspection of the chest Resp Effort & Inspection: normal respiratory effort GI Inspection: normal to inspection Palpation: soft, other (gravid uterus) Other: vertex and appropriate size for gestational age Other: Cervical Exam: [ ] Extrem General: pedal edema Results POC Urinalysis 2 Dip (Clinic) Office Urine Glucose Negative Last Edit by Mary Beth Solano on 08/30/20 10:2 4 Office Urine Protein Negative Last Edit by Mary Beth Solano on 08/30/20 10:2 4 Assessment & Plan Problems 1. Generalized anxiety disorder with panic attacks F41.1; F41.0 counseling encouraged, no meds at this time 2. Z34.90 declined genetic, carrier and NTD. MFM Anatomy US normal 3. Supervision of normal first Z34.00 PRR REGGIE 09/17/2020 Girl [place] Spouse: Dejan 4. Arthrogryposis Q68.8 hands, multiple reconstructive surgeries. not inheritable per previous evaluation 5. Abnormal glucose affecting O99.810 Normal 3 hr GTT 6. Influenza vaccine administered Z23 07/20/2020sc 7. Marijuana use F12.90 Tox screen positive 01/24. Random tox screens, medical marijuana in the past. 8/6 positive; + tox 08/03/20; + 08/17 Patient presents IAL, plan expectant management for . Pain management: plans epidural. GBS negative Management of any complications: none I have reviewed the [facility] and made any clinically relevant updates. Orders Orders: POC Urinalysis 2 Dip (Clinic) Today Urine Drug Screen ([facility]) Today F12.90 Coding Level of Care Code Off vis,est,level 3 Diagnoses Generalized anxiety disorder with panic attacks F41.1; F41.0 Z34.90 Supervision of normal first Z34.00 Arthrogryposis Q68.8 Abnormal glucose affecting O99.810 Influenza vaccine administered Z23 Marijuana use F12.90
[2020-09-03] MEDS: Oxytocin 30 units/NS 500 ml 30 UNITS/500 ML IV.SOLN 334 UNITS IV (13:55)
--- NOTE | 2020-09-03 14:27 | OP.PCM_ITS ---
Problem List (1) SROM (spontaneous rupture of membranes) Status: Acute (2) Influenza vaccine administered Status: Acute Comment: 07/20/2020sc (3) Abnormal glucose affecting Status: Acute Comment: Normal 3 hr GTT (4) Arthrogryposis Status: Acute Comment: hands, multiple reconstructive surgeries. not inheritable per previous evaluation (5) Marijuana use Status: Acute Comment: Tox screen positive 01/24. Random tox screens, medical marijuana in the past. 8/6 positive; + tox 08/03/20; + 08/17 (6) Supervision of normal first Status: Acute Qualifiers: Comment: PRR REGGIE 09/17/2020 Girl [place] Spouse: Dejan (7) Status: Acute Qualifiers: Comment: declined genetic, carrier and NTD. MFM Anatomy US normal (8) Generalized anxiety disorder with panic attacks Status: Chronic Comment: counseling encouraged, no meds at this time Vaginal Delivery Maternal Presentation: Spontaneous Rupture of Membranes Patient is a 25-year-old G1 at 38 weeks gestation who was admitted for a ugmentation of labor for rupture of membranes. She was augmented with Pitocin. Method of Induction: Pitocin Amniotic Membrane Rupture Type: Spontaneous at home Amniotic Fluid Description: Clear Final REGGIE: 09/17/20 Gestational age: 38 Weeks and 0 Days Date of Procedure: 09/03/20 Pre-Operative Diagnosis: SROM Post-Operative Diagnosis: Same Surgery/ Procedure Performed: Spontaneous Vaginal Delivery Type of Anesthesia: Epidural Description of Procedure: Patient began pushing and delivered the head in the JOHN presentation. The head was delivered atraumatically. The anterior and posterior shoulders delivered without complication followed by the rest of the and the infant was placed on the maternal abdomen. Delayed cord clamping was employed for approximately 60 seconds. Cord was clamped and cut and gentle traction was applied to the cord and the placenta delivered spontaneously immediately following it was noted to be intact with three-vessel cord. The perineum and vagina were inspected and bilateral periurethral and a midline first-degree perineal laceration were noted and repaired in the standard fashion using 3-0 Vicryl repeat suture. EBL was 200 cc. Patient and tolerated delivery well. Presentation: JOHN Placental Delivery Description: Spontaneous Placenta Disposition: [facility] Cord Vessel Description: 3 Vessels Cord Entanglement: None Estimated Blood Loss: 200 ml A gender: Female (1 minute): 8 (5 minute): 9 Laceration: Periurethral Extnsion/lac, Perineal Extension/lac, 1st degree Medications given after delivery: IV Pitocin Complications: None Multi Select Codes - Urinary/Genital Urinary/Genital CPT Codes: 08108 Vaginal Delivery [facility]
[2020-09-03] MEDS: Ibuprofen 600 MG Tablet PO (16:08)
--- NOTE | 2020-09-03 18:46 | NURSING ---
attempted to void.
[2020-09-03] MEDS: Acetaminophen 500 MG Tablet 1000 MG PO (21:43)
[2020-09-04 00:10] VITALS: BP 95/47; PULSE 79; RESP 14; TEMP 36.5
[2020-09-04 04:06] VITALS: BP 119/49; PULSE 98; RESP 14; TEMP 36.4
[2020-09-04] MEDS: Ibuprofen 600 MG Tablet PO ×3 (04:17→19:59)
[2020-09-04 08:00] VITALS: BP 95/53; PULSE 76; RESP 16; TEMP 37.1
--- NOTE | 2020-09-04 08:03 | PCM.PN.OB ---
Patient Problems: Active and Suspected Problems (Last Reviewed 08/30/20 @ 10:16 by Mary Beth Solano) SROM (spontaneous rupture of membranes) (Acute) Influenza vaccine administered (Acute) 07/20/2020sc Abnormal glucose affecting (Acute) Normal 3 hr GTT Arthrogryposis (Acute) hands, multiple reconstructive surgeries. not inheritable per previous evaluation Marijuana use (Acute) Tox screen positive 01/24. Random tox screens, medical marijuana in the past. 8/6 positive; + tox 08/03/20; + 08/17 Supervision of normal first (Acute) PRR REGGIE 09/17/2020 Girl [place] Spouse: Dejan (Acute) declined genetic, carrier and NTD. MFM Anatomy US normal Subjective: Patient doing well without complaints. Tolerating PO. Ambulating and voiding without difficulty. well. Denies chest pain, shortness of breath, calf pain/swelling, fevers, chills, lightheadedness. - Physical Exam Vitals/I&O's: Vital Signs Temp Pulse Resp BP Pulse Ox 97.6 F L 98 14 119/49 L 96 09/04/20 04:06 09/04/20 04:06 09/04/20 04:06 09/04/20 04:06 09/03/20 16:11 Oxygen Delivery Method Room Air Weight: 175 lb 3.2 oz Body Mass Index (BMI) 33.0 Intake and Output for Last 24 Hours 09/02/20 09/03/20 09/04/20 23:59 23:59 23:59 Intake Total 3851.96 / 3851.96 Output Total 2550 / 2550 Balance 1301.96 / 1301.96 General: Alert, Oriented x3 Abdomen: Non Tender, - - FF below U Current Medications Acetaminophen (Acetaminophen 500 Mg Tablet) 1,000 mg PO Q8H PRN PRN PRN Reason: Pain Score 1-3 Last Admin: 09/03/20 21:43 Dose: 1,000 mg Documented by: Bisacodyl (Bisacodyl 10 Mg Suppository) 10 mg RECTAL UD PRN PRN Reason: If no BM Dibucaine (Dibucaine 30 Gm Tube) 1 applic TOPICAL TID PRN PRN; Protocol PRN Reason: Discomfort Famotidine (Famotidine 20 Mg Tablet) 20 mg PO DAILY EMANUEL Hydrocortisone (Hydrocortisone 2.5% Crm) 1 applic TOPICAL TID PRN PRN; Protocol PRN Reason: Discomfort Ibuprofen (Ibuprofen 600 Mg Tablet) 600 mg PO Q6H PRN PRN PRN Reason: Pain Score 1-3 Last Admin: 09/04/20 04:17 Dose: 600 mg Documented by: Methylergonovine Maleate (Methylergonovine 0.2 Mg/Ml Ampul) 0.2 mg IM X1 PRN PRN Reason: Excess bleeding/uterine atony Ondansetron HCl (Ondansetron 4 Mg/2 Ml Vial) 4 mg IV Q4H PRN PRN PRN Reason: Nausea Oxycodone HCl (Oxycodone 5 Mg Tablet) 5 - 10 mg PO Q4H PRN PRN PRN Reason: Pain Score 4-10 Senna/Docusate Sodium (Senna/Docusate Sodium 1 Tablet) 1 - 2 tablet PO DAILY PRN PRN PRN Reason: Constipation Simethicone (Simethicone 80 Mg Tablet) 80 mg PO PCHS PRN PRN Reason: Indigestion/Stomach pain Sodium Chloride (0.9% Saline Lock 10 Ml Syringe) 5 - 15 ml IV UD PRN PRN Reason: SALINE FLUSH Medical Necessity - Tobacco Use Smoking Status: Former smoker Assessment/Plan All Active Problems (Last Reviewed 08/30/20 @ 10:16 by Mary Beth Solano) SROM (spontaneous rupture of membranes) (Acute) Influenza vaccine administered (Acute) Abnormal glucose affecting (Acute) Arthrogryposis (Acute) Marijuana use (Acute) Supervision of normal first (Acute) (Acute) Gastroenteritis (Resolved) s/p PPD # 1 1. routine post delivery care 2. breast feeding- support given 3. rh positive 4. rubella immune 5. home today
--- NOTE | 2020-09-04 08:04 | DCINST_ITS ---
Additional Instructions: If you experience any of the following, contact your healthcare provider. * Bleeding that soaks a pad every hour for 2 hours * Fever 100.4 or higher * Unrelieved incision or abdominal pain * Swelling, redness, discharge or bleeding from your incision or episiotomy site * Your incision begins to separate * Problems urinating (including inability to urinate or burning while urinating). * Visual changes * Severe headache * Flu-like symptoms * Pain or redness in one of both of your breasts * Pain, warmth, tenderness or swelling in your legs, especially the calf area * Frequent nausea and vomiting * Symptoms of depression or anxiety If you experience any of the following, call 911 or go to the nearest Emergency Room. * Chest pain * Problems breathing * Seizure activity * Partial or complete paralysis of a body part, slurred speech, weakness or drooping of the face, or a sudden inability to walk or hold your balance Allergies/Adverse Reactions: Allergies No Known Allergies Allergy (Verified 09/03/20 01:46) Medications to take at Discharge multivitamin no.47-iron fum 27 mg-folate no.1 1 mg-dha 300 mg capsule 1 cap PO DAILY 01/25/20 Famotidine 20 mg PO DAILY 09/03/20 Primary Care Physician: Care Physician,No Primary [Primary Care Provider] - Test Results: Test results from this visit will be discussed in further detail at your follow- up appointment, if applicable.
--- NOTE | 2020-09-04 08:04 | PCM.DCVAG ---
Additional Instructions: If you experience any of the following, contact your healthcare provider. Bleeding that soaks a pad every hour for 2 hours Fever 100.4 or higher Unrelieved incision or abdominal pain Swelling, redness, discharge or bleeding from your incision or episiotomy site Your incision begins to separate Problems urinating (including inability to urinate or burning while urinating). Visual changes Severe headache Flu-like symptoms Pain or redness in one of both of your breasts Pain, warmth, tenderness or swelling in your legs, especially the calf area Frequent nausea and vomiting Symptoms of depression or anxiety If you experience any of the following, call 911 or go to the nearest Emergency Room. Chest pain Problems breathing Seizure activity Partial or complete paralysis of a body part, slurred speech, weakness or drooping of the face, or a sudden inability to walk or hold your balance Allergies/Adverse Reactions: Allergies No Known Allergies Allergy (Verified 09/03/20 01:46) Medications to take at Discharge multivitamin no.47-iron fum 27 mg-folate no.1 1 mg-dha 300 mg capsule 1 cap PO DAILY 01/25/20 Famotidine 20 mg PO DAILY 09/03/20 Primary Care Physician: Care Physician,No Primary [Primary Care Provider] - Test Results: Test results from this visit will be discussed in further detail at your follow-up appointment, if applicable.
[2020-09-04 12:00] VITALS: BP 100/54; PULSE 91; RESP 18; TEMP 36.6
[2020-09-04 16:00] VITALS: BP 99/54; PULSE 82; RESP 16; TEMP 36.9
--- NOTE | 2020-09-04 17:10 | CASEMGMT ---
Social Work Assessment Labor and Delivery Unit Patient Address: [address] [facility], [place] [address] Phone number: [phone] Date of Referral: 09/03/2020 Time of Referral: 1919 Referred By: Dr. Loja Date of Intervention: 09/04/2020 Time of Intervention: 1709 Reason for Referral: Maternal history of anxiety and depression; positive THC in -has prescription. History obtained from: Medical records and mother of baby (VIKKI) Zulema Shields. Father of baby (FOB) Dejan Shields also present for part of assessment. Household composition: MOB and FOB live together, and ANGELI's mother recently moved in on a temporary basis. Home situation is reported to be safe and adequate. Patient's parent/guardian status: VIKKI who is age 25 is to ANGELI Shields (8), and have been together for the last 5 years. During private conversation with the MOB, and will be denies any form of abuse, control, or intimidation in this relationship. baby Alberto Shields (09/03/2020) is the first child for both parents. Medical History: VIKKI is 2, para 0 now 1 after delivery of Alberto. care started in the first trimester, with a gap in care between 10 and 19 weeks, although regular there after until time of delivery. Delivery occurred at 38 weeks gestation. Baby weighed 6 pounds 8 ounces. 8 and 9 at 1 and 5 minutes of life respectively. VIKKI does have a history of 1 first trimester miscarriage in 2018. VIKKI reports to have arthrogryposis syndrome, with 9 hand surgeries from the age of 17 until November 2019. Reports also to have some arthritis in some of her joints. Educational Status: VIKKI has a in 11th grade education. VIKKI denies any issues with reading, writing, or learning comprehension. VIKKI reports her goal is to get her GED. Financial Status: ANGELI works full-time installing [employer]. 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 ANGELI plans to stay at home for the time being, but may return back to work in a couple of months. Infant Supplies: MOB and FOB reported to have all needed baby supplies to get started. Reported to have a safe sleep space and car seat. VIKKI is hoping to provide breast milk to the baby. Will be getting a breast pump prior to leaving the hospital. Childcare/Caregiver(s): I will be will be the primary caregiver of the baby. FOB will help at home and there is help available from family as well. Transportation: And will be and FOB deny any concerns with transportation. Programs/Agencies Involved: VIKKI has medical health [facility] health plan through [facility] job and family services. Family is connected with the [facility] department. No other reported agency involvement. Belia does agree to a help me grow referral. Behavioral Health Issues: Mental Health History: VIKKI reports a history of generalized anxiety disorder with panic. Reports a history of self injury during her teenage years from about age 15 to age 17. Denies any self injury since that time. MOB denies self injury was in conjunction with suicidal suicidal ideation or intent, but more as a method for VIKKI to cope with other things going on. MOB denies any thoughts, plans, intent or action regarding suicide in the past and including during this . VIKKI reports a history of treatment with lorazepam as needed for her anxiety, but has been able to get off of this for the last couple of years. VIKKI does have a history of counseling and reports would be willing to do this again if needed in the future. [facility] depression screen completed with [place] the state and scores of 2, below the threshold for any current presence of depression or anxiety. 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 MOB denies any type of illicit drug use history including substances such as heroin, cocaine, methamphetamines, or pills. VIKKI does admit she has been prescribed narcotic narcotic pain medication in the past after her surgeries, and does not like to take them, because it is hard to discontinue. MOB reports she has a medical marijuana prescription related to her physical issues. MOB reports that did research and felt that using topical cannabis during was a better decision then using edible or inhalation of said substance. MOB indicates that use of topical cannabis in the form of lotion or CBD oil did occur throughout the . Mom reports she does not feel high or impaired when using cannabis topically. MOB is a former tobacco smoker. Family History: MOB reports addiction does run in her family. Chart indicates that MOB's mother has a history of depression and anxiety. ANGELI shares that he himself has a history of alcohol abuse issues, with last drink about 9 months ago, and reports prior to that had been months since drinking. ANGELI reports also a history of anxiety and depression for himself, as well as being diagnosed with borderline personality disorder a few years ago. ANGELI reports he is currently in counseling with Jeremiah Ocasio who is a certified counselor and based through the family's religion. Drug Screens: MOB positive for marijuana during on 05/24/2020, 06/21/2020, 08/03/2020, 08/17/2020, 08/30/2020, and 09/03/2020. Baby's urine drug screen was negative though noted in chart that first void was missed. Meconium drug screen is pending at this time. Family/Social Stressors: MOB with medical issues which have resulted in 9 surgeries since that time and will be with 17, and MOB trying to find something to help manage symptoms related to her physical issues. MOB reports did research and felt that topical cannabis was a better choice during , but reports that now feels should have done more research than what actually did. ANGELI's mother has recently moved into the home, as MOB and ANGELI are trying to help and will be his [id number] out of a bad situation. The COVID pandemic is a general source of stress for many during this time. Support Systems: MOB and ANGELI both report each as a support to the other. Both report their religion, which is called [employer] and is of the apostolic affiliation, as a strong support. ANGELI reports that one of the pastors has really taken over a father role to the FOB and has become a good mentor. MOB and FOB both report to have emotional and practical supports available to them. ANGELI's mother is reported as supportive, and somebody that can help with the baby when needed. MOB's parents do live out of town, but are willing to help when needed. Depression/Shaken Baby/Safe Sleeping: Reviewed with both parents shaken baby prevention and safe sleeping. Broached depression and anxiety for both mother and father, risk factors, and importance of seeking help and support. ANGELI is already in counseling, and plans to remain in counseling. MOB reports willingness to return to counseling herself if symptoms arise. ASSESSMENT: Met with MOB and FOB in room. Both parents pleasant and cooperative with meeting with community mental health social worker. MOB did hold the baby during social work visit, was gentle and appropriate with baby. MOB showed bonding cues as evidenced by adjusting the baby, gazing at the baby, and smiling at the baby. MOB and FOB both report to have needed baby supplies to care for the infant, and to have adequate support from family and their religion. Did complete the [employer] depression screen with MOB privately, and score is a 2. FOB talked openly about his history of alcohol abuse, and informed this justowriter operator had been diagnosed with Borderline multiple personality disorder. Upon social work clarification the FOB reported belief that maybe it was just borderline personality disorder rather than mulitple personality disorder. FOB reports to feel he has a handle on alcohol cessation and to have good mentorship through the religion helping FOB keep to goals. MOB reports to feel good right now, and to feel able to manage anxiety. MOB does report to have medical marijuana card, and from discussion regarding MOB's medical issues, it appears the medical marijuana usage could continue to be present in MOB's life. MOB reports that does not feel high or impaired when using the substance topically. Educated MOB that marijuana usage and breast feeding are not typically recommended due to risk of baby's exposure through breast milk. Encouraged MOB to discuss with about this. Educated MOB to possibility of children services following up in light of intrauterine exposure to baby of marijuana. Answered MOB's questions and offered support. PLAN: MOB and baby to home when ready for discharge. Will be making a referral to [facility] Children Services as well as Help Me Grow referral. Provided family with packet on mood and anxiety disorders, and a marriage and family social worker resource list for [facility]. Left this justowriter operator's contact information should MOB think of any other questions or concerns. -DIVYA Suarez, LABORER [employer]LE [employer] *Information documented in this assessment generated with [employer] System*
[2020-09-04 19:43] VITALS: BP 108/50; PULSE 79; RESP 16; TEMP 36.7
[2020-09-05 01:45] VITALS: BP 109/53; PULSE 75; RESP 16; TEMP 36.4
[2020-09-05] MEDS: Ibuprofen 600 MG Tablet PO (05:24)
--- NOTE | 2020-09-05 08:01 | PN.OBGYN_ITS ---
Patient Problems: Active and Suspected Problems (Last Reviewed 08/30/20 @ 10:16 by Mary Beth Solano) SROM (spontaneous rupture of membranes) (Acute) Influenza vaccine administered (Acute) 07/20/2020sc Abnormal glucose affecting (Acute) Normal 3 hr GTT Arthrogryposis (Acute) hands, multiple reconstructive surgeries. not inheritable per previous evaluation Marijuana use (Acute) Tox screen positive 01/24. Random tox screens, medical marijuana in the past. 8/6 positive; + tox 08/03/20; + 08/17 Supervision of normal first (Acute) PRR REGGIE 09/17/2020 Girl Anne-Marie Spouse: Dejan (Acute) declined genetic, carrier and NTD. MFM Anatomy US normal Subjective: Patient doing well without complaints. Tolerating PO. Ambulating and voiding without difficulty. Stayed extra day due to difficulties, this is going much better. Denies chest pain, shortness of breath, calf pain/swelling, f freddy, chills, lightheadedness. - Physical Exam Vitals/I&O's: Vital Signs Temp Pulse Resp BP Pulse Ox 97.6 F L 75 16 109/53 L 96 09/05/20 01:45 09/05/20 01:45 09/05/20 01:45 09/05/20 01:45 09/03/20 16:11 Oxygen Delivery Method Room Air Weight: 175 lb 3.2 oz Body Mass Index (BMI) 33.0 Intake and Output for Last 24 Hours 09/03/20 09/04/20 09/05/20 23:59 23:59 23:59 Intake Total 3851.96 / 3851.96 Output Total 2550 / 2550 Balance 1301.96 / 1301.96 General: Alert, Oriented x3 Abdomen: Soft, Non Tender, - - FF below U Current Medications Acetaminophen (Acetaminophen 500 Mg Tablet) 1,000 mg PO Q8H PRN PRN PRN Reason: Pain Score 1-3 Last Admin: 09/03/20 21:43 Dose: 1,000 mg Documented by: Bisacodyl (Bisacodyl 10 Mg Suppository) 10 mg RECTAL UD PRN PRN Reason: If no BM Dibucaine (Dibucaine 30 Gm Tube) 1 applic TOPICAL TID PRN PRN; Protocol PRN Reason: Discomfort Famotidine (Famotidine 20 Mg Tablet) 20 mg PO DAILY EMANUEL Last Admin: 09/04/20 12:46 Dose: Not Given Documented by: Hydrocortisone (Hydrocortisone 2.5% Crm) 1 applic TOPICAL TID PRN PRN; Protocol PRN Reason: Discomfort Ibuprofen (Ibuprofen 600 Mg Tablet) 600 mg PO Q6H PRN PRN PRN Reason: Pain Score 1-3 Last Admin: 09/05/20 05:24 Dose: 600 mg Documented by: Methylergonovine Maleate (Methylergonovine 0.2 Mg/Ml Ampul) 0.2 mg IM X1 PRN PRN Reason: Excess bleeding/uterine atony Ondansetron HCl (Ondansetron 4 Mg/2 Ml Vial) 4 mg IV Q4H PRN PRN PRN Reason: Nausea Oxycodone HCl (Oxycodone 5 Mg Tablet) 5 - 10 mg PO Q4H PRN PRN PRN Reason: Pain Score 4-10 Senna/Docusate Sodium (Senna/Docusate Sodium 1 Tablet) 1 - 2 tablet PO DAILY PRN PRN PRN Reason: Constipation Simethicone (Simethicone 80 Mg Tablet) 80 mg PO PCHS PRN PRN Reason: Indigestion/Stomach pain Sodium Chloride (0.9% Saline Lock 10 Ml Syringe) 5 - 15 ml IV UD PRN PRN Reason: SALINE FLUSH Medical Necessity - Tobacco Use Smoking Status: Former smoker Assessment/Plan All Active Problems (Last Reviewed 08/30/20 @ 10:16 by Mary Beth Solano) SROM (spontaneous rupture of membranes) (Acute) Influenza vaccine administered (Acute) Abnormal glucose affecting (Acute) Arthrogryposis (Acute) Marijuana use (Acute) Supervision of normal first (Acute) (Acute) Gastroenteritis (Resolved) s/p PPD # 2 1. routine post delivery care 2. breast feeding- support given 3. rh positive 4. rubella immune 5. home today
[2020-09-05 08:45] VITALS: BP 101/66; PULSE 75; RESP 16; TEMP 36.5
[2020-09-05] MEDS: Senna/Docusate Sodium 1 Tablet PO (10:10)
--- NOTE | 2020-09-05 13:02 | CASEMGMT ---
Social Work Labor and Delivery Unit Referral to Tangela Alicea at [facility] ([facility]) related to substance exposed , based on maternal drug screens (6) during . Reported baby's negative urine at delivery, but MOB's positive. Brief maternal and histories provided, including reports of MOB having a medical marijuana card. At this time referral not likely to be screened. Ask for call back when meconium results are in, and if positive. Referral to [place] Help Me Grow program via the [facility]'s secure web based referral form. MOB and baby discharged home this date. No other services requested or indicted, other than monitoring for meconium results. -ASHLEY Suarez, QUALITY REVIEW TRAINER
== END 2020-09-05 11:40 | disposition home or self-care (01) | DRG 560 ==
LOC: WPOUT 01:26 → WP 01:26
PROVIDERS: Admitting Provider Obstetrics & Gynecology; Referring Provider Obstetrics & Gynecology; Visit Provider Obstetrics & Gynecology
DX: O99.324 Drug use complicating childbirth (principal); O75.89 Other specified complications of labor and delivery; Q68.8 Other specified congenital musculoskeletal deformities; F12.980 Cannabis use, unspecified with anxiety disorder; O70.0 First degree perineal laceration during delivery; O71.5 Other obstetric injury to pelvic organs; Z3A.38 38 weeks gestation of pregnancy; Z37.0 Single live birth
CPT/HCPCS: 59025; 59050; 80307; 81001; 84112; 85025; 86850; 86900; 86901; 99218; J7120; A4216; G0378